=== PATIENT | male | born 1965 | race Caucasian/White ===

== ENCOUNTER → 2016-07-22 | Outpatient (CLI) | payer BC | LOC: COL.RAD 10:18 | DX: K76.0 Fatty (change of) liver, not elsewhere classified (principal); R10.11 Right upper quadrant pain ==

== ENCOUNTER 2017-02-15 08:48 | Day surgery (SDC) | payer BC ==
[~2017-02-15] VITALS: Ht 193 cm; Wt 117.1 kg
[2017-02-15] MEDS ORDERED: PRINIVIL10 MG PO (09:16)
[2017-02-15] MEDS ORDERED: FLONASE NASAL S16 GM NS (09:16)
[2017-02-15] MEDS ORDERED: GLUCOPHAGE500 MG/TAB PO (09:17)
[2017-02-15] MEDS ORDERED: PRAVACHOL 40MG40 MG PO (09:17)
[2017-02-15 09:25] VITALS: BP 142/88; PULSE 70; TEMP 98.8
[2017-02-15 10:35] VITALS: BP 144/87; PULSE 74; TEMP 97.5
[2017-02-15 10:45] VITALS: BP 133/87; PULSE 74
[2017-02-15 11:00] VITALS: BP 123/80; PULSE 65
[2017-02-15 12:34] VITALS: BP 115/77; PULSE 71
== END 2017-02-15 11:25 | disposition home or self-care (01) ==
LOC: SDCO 08:48
DX: Z12.11 Encounter for screening for malignant neoplasm of colon (principal); E11.9 Type 2 diabetes mellitus without complications; E78.00 Pure hypercholesterolemia, unspecified
CPT/HCPCS: OP; J2250; J3010; J7030

== ENCOUNTER 2018-12-17 01:49 | Emergency (ER) | payer BC ==
[~2018-12-17] VITALS: Ht 193 cm; Wt 118.2 kg
[~2018-12-17 01:49] MED LIST: FLONASE NASAL S16 GM NS; GLUCOPHAGE500 MG/TAB PO; PRAVACHOL 40MG40 MG PO; PRINIVIL10 MG PO
[2018-12-17 01:51] VITALS: TEMP 97.5
[2018-12-17 02:07] LABS: BASO % 0.5 % (0.0-2.0); EOS # 0.2 (0.0-0.7); EOS % 2.1 % (0-4.0); GRAN # 3.7 (1.4-6.5); GRAN % 44.7 % (42.2-75.2); HEMATOCRIT 43.8 % (42.0-52.0); LYMPH # 3.1 (1.2-3.4); MEAN CELL VOLUME 94 fl (80.0-100.0); MEAN CORPUSCULAR HEMOGLOBIN 32 pg (27.0-31.0); MEAN CORPUSCULAR HGB CONC 34 g/dl (33.0-37.0); MEAN PLATELET VOLUME 9.8 fl (7.4-10.4); MONO # 1.3 (0.1-0.6); MONO % 15.3 % (1.7-9.3); PLATELET COUNT 189 K/mm3 (130-400); RED BLOOD COUNT 4.67 M/mm3 (4.20-5.60); REDCELL DISTRIBUTION WIDTH-CV 12.2 % (11.5-14.5)
[2018-12-17 02:16] LABS: ALANINE AMINOTRANSFERASE 51 U/L (21-72); ALBUMIN 4.3 gm/dL (3.5-5.0); ALKALINE PHOSPHATASE 72 U/L (50-136); ANION GAP 12 mmol/L (7-16); AST,SGOT 36 U/L (15-37); BILIRUBIN,TOTAL 0.7 mg/dL (0.0-1.0); BLOOD UREA NITROGEN 14 mg/dL (9-20); CALCIUM 9.9 mg/dL (8.4-10.2); CARBON DIOXIDE 28 mmol/L (22-30); CHLORIDE 98 mmol/L (98-107); CREATININE, serum 1.04 (0.66-1.25); GLUCOSE 360 mg/dL (74-106); INR 0.9 (0.8-3.0); LIPASE 177 U/L (23-300); POTASSIUM 4.1 mmol/L (3.4-5.0); PROTHROMBIN TIME 10.9 SECONDS (9.7-12.8); SODIUM 137 mmol/L (137-145); TOTAL PROTEIN 7.6 gm/dL (6.4-8.2)
[2018-12-17 02:20] LABS: D-DIMER < 200.00 ng/mLDDu (200-230)
[2018-12-17 02:27] LABS: TROPONIN-I < 0.012 ng/mL (0.000-0.035)
[2018-12-17 06:40] VITALS: BP 99/63; PULSE 63
== END 2018-12-17 06:45 | disposition home or self-care (01) ==
LOC: COL.ER 01:49
PROVIDERS: Emergency Medicine
DX: R07.89 Other chest pain (principal); I10 Essential (primary) hypertension; E11.9 Type 2 diabetes mellitus without complications; E78.5 Hyperlipidemia, unspecified; Z90.89 Acquired absence of other organs; Z79.84 Long term (current) use of oral hypoglycemic drugs
CPT/HCPCS: J1885; J2270; J7030

== ENCOUNTER 2021-02-23 14:11 | Observation (INO) | payer BC ==
[~2021-02-23] VITALS: Ht 193.1 cm; Wt 109.5 kg
[2021-02-23 14:44] LABS: BASO # 0.1 (0.0-0.2); BASO % 0.7 % (0.0-2.0); EOS # 0.2 (0.0-0.7); EOS % 1.5 % (0-4.0); GRAN % 64.9 % (42.2-75.2); HEMATOCRIT 47.1 % (42.0-52.0); HEMOGLOBIN 16.1 g/dl (13.5-18.0); LYMPH # 2.5 (1.2-3.4); LYMPH % 23.4 % (20.0-51.0); MEAN CELL VOLUME 94 fl (80.0-100.0); MEAN CORPUSCULAR HEMOGLOBIN 32 pg (27.0-31.0); MEAN CORPUSCULAR HGB CONC 34 g/dl (33.0-37.0); MEAN PLATELET VOLUME 9.9 fl (7.4-10.4); MONO % 8.9 % (1.7-9.3); PLATELET COUNT 270 K/mm3 (130-400); RED BLOOD COUNT 5.01 M/mm3 (4.20-5.60); REDCELL DISTRIBUTION WIDTH-CV 12.4 % (11.5-14.5)
--- NOTE | 2021-02-23 14:45 | NUR ---
Initial visit; Patient and thanked Campaign Management Specialist for looking in on him and wished him a good report and said a blessing. Campaign Management Specialist will follow up.
[2021-02-23 14:58] LABS: ALANINE AMINOTRANSFERASE 28 U/L (0-55); ALBUMIN 4.4 gm/dL (3.5-5.0); ALKALINE PHOSPHATASE 80 U/L (0-750); ANION GAP 13 mmol/L (7-16); AST,SGOT 19 U/L (5-34); BILIRUBIN,TOTAL 0.6 mg/dL (0.2-1.2); BLOOD UREA NITROGEN 11 mg/dL (8-26); CALCIUM 9.7 mg/dL (8.4-10.2); CARBON DIOXIDE 22 mmol/L (22-29); CHLORIDE 99 mmol/L (98-107); CREATININE, serum 1.32 mg/dL (0.72-1.25); GLUCOSE 341 mg/dL (70-99); POTASSIUM 4.1 mmol/L (3.5-4.5); SODIUM 134 mmol/L (136-145)
[2021-02-23 15:18] LABS: TROPONIN-I < 0.010 ng/mL (0.00-0.033)
[2021-02-23] MEDS ORDERED: FARXIGA10 PO (17:02)
[2021-02-23 19:57] VITALS: BP 106/51; PULSE 57; TEMP 97.8
--- NOTE | 2021-02-23 21:28 | NUR ---
PT ADMITTED TO THE UNIT. ORIENTED TO ROOM. ASSESSMENT AND INTAKE COMPLETED. REPORTS CONSISTENT CHEST PAIN THAT IS UNRELIEVED BY ANYTHING. THE PAIN WORSENS WITH MOVEMENT AND DEEP BREATHING. DENIES ANY OTHER PAIN OR NEEDS. WILL CONTINUE TO MONITOR.
[2021-02-24] VITALS (12 sets, daily range): BP systolic 95–135; BP diastolic 57–78; PULSE 52–91; TEMP 97.8–98.5
--- NOTE | 2021-02-24 05:36 | NUR ---
PT HAD AN UNEVENTFUL NIGHT. DENIES ANY NEEDS. WILL CONTINUE TO MONITOR.
[2021-02-24 06:36] LABS: BASO # 0.1 (0.0-0.2); BASO % 0.6 % (0.0-2.0); EOS # 0.2 (0.0-0.7); EOS % 2.7 % (0-4.0); GRAN # 4.9 (1.4-6.5); HEMOGLOBIN 14.3 g/dl (13.5-18.0); LYMPH # 2.8 (1.2-3.4); LYMPH % 31.4 % (20.0-51.0); MEAN CELL VOLUME 93 fl (80.0-100.0); MEAN CORPUSCULAR HEMOGLOBIN 32 pg (27.0-31.0); MEAN CORPUSCULAR HGB CONC 34 g/dl (33.0-37.0); MEAN PLATELET VOLUME 9.9 fl (7.4-10.4); MONO # 0.9 (0.1-0.6); MONO % 9.8 % (1.7-9.3); PLATELET COUNT 218 K/mm3 (130-400); REDCELL DISTRIBUTION WIDTH-CV 12.4 % (11.5-14.5)
[2021-02-24 06:57] LABS: CALCIUM 9.2 mg/dL (8.4-10.2); CREATININE, serum 0.91 mg/dL (0.72-1.25); POTASSIUM 3.9 mmol/L (3.5-4.5)
--- NOTE | 2021-02-24 10:35 | NUR ---
Follow-up visit; [facility], waiting for next test. wished him well and will continue to look in on him.
--- NOTE | 2021-02-24 11:33 | NUR ---
raw cheese worker met with patient to discuss discharge plan. Patient lives at home with his Rosalba ([phone]) in [place]. Patient reports to being fully independent with activities of daily living and does not utilize any medical equipment to assist with needs. PCP is Dr. Sibley and he utilizes [facility] for perscriptions with no cost trouble. Patient states that he has a DPOA-HC established and that his is his agent. Patient is planning on returning home with no concerns. Discharge plan: Home
--- NOTE | 2021-02-24 21:00 | NUR ---
Patient is sitting in chair, alert and oriented x 4, moves himself to the bedside . VSS, Tele in place. Denies pain, nausea or vomiting. No chest pain. He is positive about the procedure tomorrow morning. Assessment completed. Meds provided. No further needs at this time. Call light within reach.
[2021-02-25] VITALS (11 sets, daily range): BP systolic 102–116; BP diastolic 55–88; PULSE 64–85; TEMP 97.7–98.7
--- NOTE | 2021-02-25 06:51 | NUR ---
Report received from BRIAN Puente. Pt. resting in bed, awake. Plan for heart cath today, pt. has been NPO since midnight. Student nurse Liza in room getting vital signs. Pt. denies further needs at this time. Call light and belongings in reach.
[2021-02-25 07:08] LABS: HEMATOCRIT 45.2 % (42.0-52.0); HEMOGLOBIN 15.1 g/dl (13.5-18.0); MEAN CELL VOLUME 95 fl (80.0-100.0); MEAN CORPUSCULAR HEMOGLOBIN 32 pg (27.0-31.0); MEAN CORPUSCULAR HGB CONC 33 g/dl (33.0-37.0); MEAN PLATELET VOLUME 10.4 fl (7.4-10.4); PLATELET COUNT 257 K/mm3 (130-400); RED BLOOD COUNT 4.76 M/mm3 (4.20-5.60); REDCELL DISTRIBUTION WIDTH-CV 12.3 % (11.5-14.5)
[2021-02-25 07:24] LABS: CALCIUM 9.1 mg/dL (8.4-10.2); CREATININE, serum 0.99 mg/dL (0.72-1.25); POTASSIUM 3.7 mmol/L (3.5-4.5)
[2021-02-25 07:26] LABS: INR 1.1 (0.8-3.0); PROTHROMBIN TIME 12.3 SECONDS (9.7-12.8)
[2021-02-25 07:29] LABS: PARTIAL THROMBOPLASTIN TIME 33.9 SECONDS (26.0-37.0)
--- NOTE | 2021-02-25 08:30 | NUR ---
Pt. progressing w/ plan of care. BRIAN Vance came to pick pt. up to go to the pharmacy laboratory technician. Pt. in the pharmacy laboratory technician now. Pt. agreeable w/ plan of care.
--- NOTE | 2021-02-25 09:25 | NUR ---
Pt. back from [employer]. Report received from BRIAN Vance. Pt. alert and denies needs at this time. Vitals WNL, frequent vitals in place at this time. Supportive at bedside. +PP, +CSM of all extremeties. TR band in place, no s/s of bleeding, 15ml of air inflated.
[2021-02-25] MEDS ORDERED: EPA FISH OIL1 SGL PO (09:46)
[2021-02-25] MEDS ORDERED: LIPITOR 80MG80 MG PO (09:46)
[2021-02-25] MEDS ORDERED: ASPIRIN E.C. 8181 MG PO (09:46)
--- NOTE | 2021-02-25 15:30 | NUR ---
Pt. discharged home. IV removed, site c/d/i. Pt. verbalized and demonstrated understanding of discharge instructions. Site to R wrist is c/d/i, free of irritation/ hematoma. Pt. left floor via foot w/ hospital staff & .
== END 2021-02-25 16:30 | disposition home or self-care (01) ==
LOC: COL.ER 14:11 → MEDICAL 16:01
PROVIDERS: Physician Assistant; ADMIT Student in an Organized Health Care Education/Training Program
DX: I25.110 Atherosclerotic heart disease of native coronary artery with unstable angina pectoris (principal); I10 Essential (primary) hypertension; N17.9 Acute kidney failure, unspecified; E11.9 Type 2 diabetes mellitus without complications; E78.5 Hyperlipidemia, unspecified; F17.210 Nicotine dependence, cigarettes, uncomplicated; Z79.84 Long term (current) use of oral hypoglycemic drugs; Z79.899 Other long term (current) drug therapy
CPT/HCPCS: 99239; A9500; G0378; J1644; J1650; J1815; J2250; J2785; J3010; J7030